=== PATIENT | male | born 1960 | race Caucasian/White ===

== ENCOUNTER 2018-01-16 19:56 | Observation (INO) ==
[2018-01-16 20:29] LABS: Basophils % 0.2 %; Eosinophils # 0.2 K/mcL (0.0-0.6); Eosinophils % 1.1 %; Hematocrit 48.2 % (37.5-50.1); Hemoglobin 15.8 g/dL (12.9-16.9); Immature Granulocytes % 0.6 % (0-4); Lymphocytes # 2.9 K/mcL (0.6-4.6); Lymphocytes % 22.1 %; Mean Corpuscular HGB Conc 32.8 g/dL (31.6-35.5); Mean Corpuscular Hemoglobin 30.9 pg (28.0-33.3); Mean Corpuscular Volume 94.3 fL (83.0-100.0); Mean Platelet Volume 10.8 fL (9.4-12.4); Monocytes # 0.9 K/mcL (0.0-1.3); Monocytes % 6.7 %; Neutrophils # 9.1 K/mcL (1.6-8.9); Platelet Count 209 K/mcL (140-400); Red Blood Count 5.11 M/mcL (4.19-5.50); Red Cell Distribution Width 13.5 % (11.5-14.5); Segmented Neutrophils % 69.3 %
[2018-01-16 20:36] LABS: Prothrombin Time 33.2 Seconds (9.4-12.1)
[2018-01-16 20:39] LABS: Activated Partial Thrombo Time 49.5 Seconds (26.0-36.0); Calcium 9.9 mg/dL (8.6-10.3); Carbon Dioxide 29 mEq/L (23-29); Chloride 97 mEq/L (98-107); Potassium 4.2 mEq/L (3.5-5.1); Sodium 134 mEq/L (136-145)
[2018-01-16 20:45] LABS: BUN/Creatinine Ratio 11 (6-26); Blood Urea Nitrogen 10 mg/dL (6-20); Glucose 371 mg/dL (70-105); Osmolality,Calculated 292 (280-300); eGFR For African Americans > 60 (> 60); eGFR For Non-African Americans > 60 (> 60)
--- NOTE | 2018-01-16 22:07 | Emergency Department Note ---
Disposition Clinical Impression: Transient cerebral ischemia Qualifiers: Transient cerebral ischemia type: unspecified Qualified Code(s): G45.9 - Transient cerebral ischemic attack, unspecified Disposition: Admitted As Inpatient Condition: Good Reasons to Return/Additional Instructions: patient admitted to hospital. Referrals: Marla eVrde CNP [Primary Care Provider] - Forms: ED Satisfaction Letter Time of Disposition: 00:10 Neuro HPI - General Chief Complaint: ED Neuro Symptoms/Deficit Stated Complaint: high bp slurred speech numbness in neck and arm Time Seen by Provider: 01/16/18 20:14 Source: patient Mode of arrival: ambulatory Limitations: no limitations Nursing Notes Reviewed: Yes Vital Signs Reviewed: Yes - History of Present Illness HPI Narrative: 57-year-old male presents to emergency department with a complaint of high blood pressure and right arm and neck numbness and tingling. Patient states that his symptoms have resolved upon presentation to emergency room however was present at bedside, insisted that he come in. She also some slurring of speech at that time. She did notice the manual blood pressure cuff that his blood pressure was 220/120. He is denying any symptoms of chest pain, shortness of breath, fevers, chills, recent illness. 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 He does take a daily aspirin at home. Onset of Symptoms Date: 01/16/18 Timing confirmed by: spouse Location: speech, right arm History of same: No Quality: weakness, numbness, tingling Symptoms Improving: Yes Improves with: none Worsens with: none Context: sudden onset On Anticoagulants: Yes Associated symptoms: Reports: denies other symptoms Treatments Prior to Arrival: none - Related Data Home Medications: Home Medications Medication Instructions Recorded Confirmed Albuterol Sulfate [Albuterol 2 puff IH Q4H PRN 11/06/15 01/16/18 Inhaler] Alprazolam XR [Xanax Xr] 1 mg PO HS 11/06/15 01/16/18 Alprazolam XR [Xanax Xr] 2 mg PO QAM 11/06/15 01/16/18 Aspirin [Adult Low Dose Aspirin EC] 81 mg PO DAILY 11/06/15 01/16/18 Budesonide/Formoterol 160/4.5 2 puff IH BIDR 11/06/15 01/16/18 [Symbicort] Colestipol HCl [Colestid] 1 gm PO BID 11/06/15 01/16/18 Cyanocobalamin (Vitamin B-12) 1,000 mcg PO DAILY 11/06/15 01/16/18 [Vitamin B12] Donepezil [Aricept] 10 mg PO HS 11/06/15 01/16/18 Insulin Glargine [Lantus] 95 unit SQ BID 11/06/15 01/16/18 Insulin LISPRO [HumaLOG] 0 units SQ TIDWM 11/06/15 01/16/18 Ipratropium/Albuterol Neb [Duoneb] 3 ml IH Q6HR PRN 11/06/15 01/16/18 Lansoprazole [Prevacid] 30 mg PO DAILY 11/06/15 01/16/18 Linagliptin [Tradjenta] 5 mg PO DAILY 11/06/15 01/16/18 Lisinopril [Zestril] 5 mg PO BID 11/06/15 01/16/18 Albuterol Neb [Proventil Neb] 2.5 mg IH TID 01/16/18 01/16/18 Ammonium Lactate [Kellen-Hydrolac] 1 appl TP BID 01/16/18 01/16/18 Calcium Polycarbophil [Fibercon] 625 mg PO QID PRN 01/16/18 01/16/18 Carvedilol [Coreg] 6.25 mg PO BIDWM 01/16/18 01/16/18 Dulaglutide [Trulicity] 0.75 mg SQ TU 01/16/18 01/16/18 Fluticasone Propionate Nasal 50 mcg NS DAILY 01/16/18 01/16/18 [Flonase] Folic Acid 1 mg PO DAILY 01/16/18 01/16/18 Furosemide [Lasix] 120 mg PO BID 01/16/18 01/16/18 Gabapentin [Neurontin] 300 mg PO TID 01/16/18 01/16/18 HYDROcodone/Acet 5/325 mg [[place] 1 tab PO Q6H PRN 01/16/18 01/16/18 5-325 mg] Isosorbide MONOnitrate (24 HR) 30 mg PO DAILY 01/16/18 01/16/18 [Imdur] Meloxicam [Mobic] 7.5 mg PO DAILY 01/16/18 01/16/18 Memantine HCl 10 mg PO HS 01/16/18 01/16/18 Metformin HCl [Glucophage] 1,000 mg PO BID 01/16/18 01/16/18 Nitroglycerin [Nitrostat] 0.4 mg SL Q5M PRN 01/16/18 01/16/18 OLANZapine [Zyprexa] 15 mg PO HS 01/16/18 01/16/18 Potassium Chloride [K-Tab ER] 20 meq PO BID 01/16/18 01/16/18 Simvastatin [Zocor] 40 mg PO HS 01/16/18 01/16/18 Tiotropium [place] [Spiriva 2 puff IH DAILY 01/16/18 01/16/18 Respimat] Warfarin [Coumadin] 10 mg PO 1800 01/16/18 01/16/18 lamoTRIgine [Lamictal] 50 mg PO HS 01/16/18 01/16/18 Previous Rx's Medication Instructions Recorded DiphenhydraMINE [Benadryl] 25 mg PO Q8HR PRN #30 capsule 11/07/15 Allergies/Adverse Reactions: Allergies Allergy/AdvReac Type Severity Reaction Status Date / Time No Known Allergies Allergy Verified 10/15/15 18:10 All systems ED: reviewed and negative except as stated. Review of Systems: As Per HPI Past Medical History - Past Medical History Medical history: Reports: CHF, COPD, DVT, dementia, diabetes, hyperlipidemia, hypertension, other Surgical history: Reports: cholecystectomy Psychiatric history: Reports: bipolar, depression - Social History Smoking Status: Current every day smoker Smokeless Tobacco Status: No Alcohol use: Reports: none Drug use: Reports: none Physical Exam - General Limitations: no limitations General appearance: alert, in no apparent distress, obese - Head Head exam: atraumatic, normocephalic, normal inspection - Chest Chest inspection: Present: normal inspection, symmetric chest wall rise - Respiratory Respiratory exam: Present: normal lung sounds bilaterally - Cardiovascular Cardiovascular exam: Present: regular rate, normal rhythm, tachycardia, normal heart sounds - Extremities Exam Extremities exam: Present: normal inspection, full ROM. Absent: tenderness, pedal edema - Neurological Exam Neurological exam: Present: alert, oriented X3, CN II-XII intact, normal gait. Absent: motor sensory deficit - Expanded Neurological Exam Speech: Present: fluid speech Cranial nerves: EOM function (II, III, IV, ): Normal, facial sensation (V): Normal, facial palsy (VII): Normal, spinal accessory function (XI): Normal, tongue deviation (XII): Normal Cerebellar function: finger to nose: Normal Motor strength - LUE: 5/5 Motor strength - RUE: 5/5 Motor strength - LLE: 5/5 Motor strength - RLE: 5/5 Coma Scale Motor Response: Obeys Commands Coma Scale Verbal Response: Oriented - Psychiatric Psychiatric exam: Present: normal affect, normal mood - Skin Skin exam: Present: warm, dry, intact, normal color Course Course Narrative: 57-year-old male presents tomorrow and probably with a complaint of weakness, numbness, tingling of his right upper extremity and slurring of speech. His symptoms have currently resolved. We will begin stroke workup with CT head, chest x-ray, BMP, CBC, troponin, EKG. Vital Signs Temperature 97.8 F 01/16/18 20:00 Pulse Rate 122 01/16/18 20:00 Respiratory Rate 20 01/16/18 20:00 Blood Pressure 135/95 01/16/18 20:00 O2 Sat by Pulse Oximetry 95 01/16/18 20:00 Temperature 98.6 F 01/16/18 23:32 Pulse Rate 106 01/16/18 23:32 Respiratory Rate 16 01/16/18 23:32 Blood Pressure 126/89 01/16/18 23:32 O2 Sat by Pulse Oximetry 94 01/16/18 23:32 Oxygen Delivery Oxygen Delivery Room Air Neuro Symptoms/Deficit - [facility] Narrative Medical decision making narrative: 57-year-old male presenting with weakness, numbness, slurred speech. CT head was negative for acute pathology. Chest x-ray unremarkable. Blood pressure has been within normal limits since presentation to emergency room. INR is therapeutic at 3.0. We feel that this time he would benefit from a workup for TIA. Hospitalist contacted, who agrees with admission for TIA workup. - Lab Data Result diagrams: 01/16/18 20:15 01/16/18 20:15 Lab Results 01/16/18 01/16/18 01/16/18 Range/Units 20:15 20:15 20:15 WBC 13.1 H (4.3-11.1) K/mcL RBC 5.11 (4.19-5.50) M/mcL Hgb 15.8 (12.9-16.9) g/dL Hct 48.2 (37.5-50.1) % MCV 94.3 (83.0-100.0) fL MCH 30.9 (28.0-33.3) pg MCHC 32.8 (31.6-35.5) g/dL RDW 13.5 (11.5-14.5) % Plt Count 209 (140-400) K/mcL MPV 10.8 (9.4-12.4) fL Immature Gran % 0.6 (0-4) % Seg Neutrophils % 69.3 % Lymphocytes % 22.1 % Monocytes % 6.7 % Eosinophils % 1.1 % Basophils % 0.2 % Neutrophils # 9.1 H (1.6-8.9) K/mcL Lymphocytes # 2.9 (0.6-4.6) K/mcL Monocytes # 0.9 (0.0-1.3) K/mcL Eosinophils # 0.2 (0.0-0.6) K/mcL Basophils # 0.0 (0.0-0.2) K/mcL PT (9.4-12.1) Seconds INR APTT (26.0-36.0) Seconds Sodium 134 L (136-145) mEq/L Potassium 4.2 (3.5-5.1) mEq/L Chloride 97 L (98-107) mEq/L Carbon Dioxide 29 (23-29) mEq/L BUN 10 (6-20) mg/dL Creatinine 0.92 (0.70-1.30) mg/dL Est GFR ( Amer) > 60 (> 60) Est GFR (Non-Af Amer) > 60 (> 60) BUN/Creatinine Ratio 11 (6-26) Glucose 371 H (70-105) mg/dL Calculated Osmolality 292 (280-300) Calcium 9.9 (8.6-10.3) mg/dL Troponin I < 0.03 (< 0.04) ng/mL 01/16/18 Range/Units 20:15 WBC (4.3-11.1) K/mcL RBC (4.19-5.50) M/mcL Hgb (12.9-16.9) g/dL Hct (37.5-50.1) % MCV (83.0-100.0) fL MCH (28.0-33.3) pg MCHC (31.6-35.5) g/dL RDW (11.5-14.5) % Plt Count (140-400) K/mcL MPV (9.4-12.4) fL Immature Gran % (0-4) % Seg Neutrophils % % Lymphocytes % % Monocytes % % Eosinophils % % Basophils % % Neutrophils # (1.6-8.9) K/mcL Lymphocytes # (0.6-4.6) K/mcL Monocytes # (0.0-1.3) K/mcL Eosinophils # (0.0-0.6) K/mcL Basophils # (0.0-0.2) K/mcL PT 33.2 H (9.4-12.1) Seconds INR 3.0 APTT 49.5 H (26.0-36.0) Seconds Sodium (136-145) mEq/L Potassium (3.5-5.1) mEq/L Chloride (98-107) mEq/L Carbon Dioxide (23-29) mEq/L BUN (6-20) mg/dL Creatinine (0.70-1.30) mg/dL Est GFR ( Amer) (> 60) Est GFR (Non-Af Amer) (> 60) BUN/Creatinine Ratio (6-26) Glucose (70-105) mg/dL Calculated Osmolality (280-300) Calcium (8.6-10.3) mg/dL Troponin I (< 0.04) ng/mL - EKG Data EKG shows normal: sinus rhythm Rate: tachycardia Rhythm: NSR [place]/QRS: normal When compared to previous EKG there are: no significant changes Interpretation: no acute changes, normal EKG NIH Stroke Scale - Level of Consciousness LOC: Alert - LOC Questions LOC Questions: Answers both correctly - LOC Commands LOC Commands: Performs both correctly - Best Gaze Best Gaze: Normal - Visual Visual: No visual loss - Facial Palsy Facial Palsy: Normal - Motor Arms Motor Arm-Left: No drift for 10 seconds Motor Arm-Right: No drift for 10 seconds - Motor Legs Motor Leg-Left: No drift for 5 seconds Motor Leg-Right: No drift for 5 seconds - Limb Ataxia Limb Ataxia: Normal, No Ataxia - Sensory Sensory: Normal - Best Language Best Language: No aphasia - Dysarthria Dysarthria: Normal - Extinction and Inattention Extinction and Inattention: Normal - NIHSS Total Score NIHSS Total Score: 0 TPA Checklist - LKW: 3-4.5 hrs Add. Warnings/Precautions Patient/family understanding: The patient/family members have been counseled and understood the risk, benefit , and alternatives of treatment.
[2018-01-16] MEDS ORDERED: Aspirin 325 MG TABLET PO ONE (22:08)
--- NOTE | 2018-01-16 22:10 | Emergency Department Note ---
START Narrative - START START: I examined this patient and my medical decision-making was reviewed with the Resident Physician. I agree with the documented findings, disposition and treatment plan as described except to the extent set forth below. 57-year-old presents to the ER for concerns for slurred speech and hypertension. Family states they took his blood pressure home and it was 220/ 120. He was having slurred speech associated with a severe right-sided headache and some questionable right arm numbness. Upon arrival, patient has no neurological deficits. Cranial nerves are intact. No focal motor or sensory deficits. CT of the head was negative. His blood pressure is now down to normal. I feel he needs to be admitted for possible TIA evaluation based on his history and presentation. No signs of end organ damage.
[2018-01-16] MEDS ORDERED: Aspirin 81 MG TAB.CHEW ONE (22:32)
--- NOTE | 2018-01-17 02:34 | Internal Med History&Physical ---
Date of Encounter: 01/17/18 Time of Encounter: 04:25 Assessment and Plan (1) Stroke Current visit: Yes Status: Acute History of prior stroke Slurred speech is ongoing No other focal neuro changes MRI Brain, Echo and Bilat. Carotid Dopplers ordered Lipid panel ordered On Statin, aspirin and Warfarin Bedside swallow study ordered. Qualifiers: CVA mechanism: unspecified Qualified Code(s): I63.9 - Cerebral infarction, unspecified (2) History of pulmonary embolism Current visit: No Status: Chronic RPh to dose Warfarin (3) COPD (chronic obstructive pulmonary disease) Current visit: No Status: Chronic Continue home medications No acute exacerbation Qualifiers: COPD type: unspecified COPD Qualified Code(s): J44.9 - Chronic obstructive pulmonary disease, unspecified (4) Leukocytosis Current visit: No Status: Acute No obvious source of infections Repeat labs No antibiotics at this time Qualifiers: Leukocytosis type: unspecified Qualified Code(s): D72.829 - Elevated white blood cell count, unspecified (5) Tobacco abuse Current visit: No Status: Chronic 21 mg nicotine patch Rx'd Internal Medicine - H&P: HPI Chief complaint: slurred speech. Admitted From: Emergency Dept Plans for Post Hospital Care: Home History of present illness: Mr. Lambert is a 57 year old male 57-year-old male patient with history of prior stroke who presnts in ER c/o right neck and head pain which began at 12:30 pm and was associated with a right sided [place] and then slurred speech. His BP was elevated at this time and he reports high blood pressure as well as right arm and neck numbness and tingling. All of his symptoms except the slurred speech have resolved. His CT- Head can did not show infarct or acute pathology. She did notice the manual blood pressure cuff that his blood pressure was 220/120. He is denying any symptoms of chest pain, shortness of breath, fevers, chills, recent illness. 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 He does take a daily aspirin at home. Past Med Surg Social Fam HX - Past Medical History Medical history: CHF, COPD, DVT, dementia, diabetes, hyperlipidemia, hypertension, other Psychiatric history: bipolar, depression - Past Surgical History Surgical History: cholecystectomy - Social History Smoking Status: Current every day smoker Packs per day: 2.5 Smokeless Tobacco Status: No Alcohol use: none Drug use: none - Family History Mother Hx Family Cancer: Yes Father Hx Family Cardiac Disorders: Yes Internal Medicine - H&P: Meds Albuterol Sulfate [Albuterol Inhaler] 2 puff IH Q4H PRN 11/06/15 [History] Alprazolam XR [Xanax Xr] 1 mg PO HS 11/06/15 [History] Alprazolam XR [Xanax Xr] 2 mg PO QAM 11/06/15 [History] Aspirin [Adult Low Dose Aspirin EC] 81 mg PO DAILY 11/06/15 [History] Budesonide/Formoterol 160/4.5 [Symbicort] 2 puff IH BIDR 11/06/15 [History] Colestipol HCl [Colestid] 1 gm PO BID 11/06/15 [History] Cyanocobalamin (Vitamin B-12) [Vitamin B12] 1,000 mcg PO DAILY 11/06/15 [History ] Donepezil [Aricept] 10 mg PO HS 11/06/15 [History] Insulin Glargine [Lantus] 95 unit SQ BID 11/06/15 [History] Insulin LISPRO [HumaLOG] 0 units SQ TIDWM 11/06/15 [History] Ipratropium/Albuterol Neb [Duoneb] 3 ml IH Q6HR PRN 11/06/15 [History] Lansoprazole [Prevacid] 30 mg PO DAILY 11/06/15 [History] Linagliptin [Tradjenta] 5 mg PO DAILY 11/06/15 [History] Lisinopril [Zestril] 5 mg PO BID 11/06/15 [History] DiphenhydraMINE [Benadryl] 25 mg PO Q8HR PRN #30 capsule 11/07/15 [Rx] Albuterol Neb [Proventil Neb] 2.5 mg IH TID 01/16/18 [History] Ammonium Lactate [Kellen-Hydrolac] 1 appl TP BID 01/16/18 [History] Calcium Polycarbophil [Fibercon] 625 mg PO QID PRN 01/16/18 [History] Carvedilol [Coreg] 6.25 mg PO BIDWM 01/16/18 [History] Dulaglutide [Trulicity] 0.75 mg SQ TU 01/16/18 [History] Fluticasone Propionate Nasal [Flonase] 50 mcg NS DAILY 01/16/18 [History] Folic Acid 1 mg PO DAILY 01/16/18 [History] Furosemide [Lasix] 120 mg PO BID 01/16/18 [History] Gabapentin [Neurontin] 300 mg PO TID 01/16/18 [History] HYDROcodone/Acet 5/325 mg [[place] 5-325 mg] 1 tab PO Q6H PRN 01/16/18 [History] Isosorbide MONOnitrate (24 HR) [Imdur] 30 mg PO DAILY 01/16/18 [History] Meloxicam [Mobic] 7.5 mg PO DAILY 01/16/18 [History] Memantine HCl 10 mg PO HS 01/16/18 [History] Metformin HCl [Glucophage] 1,000 mg PO BID 01/16/18 [History] Nitroglycerin [Nitrostat] 0.4 mg SL Q5M PRN 01/16/18 [History] OLANZapine [Zyprexa] 15 mg PO HS 01/16/18 [History] Potassium Chloride [K-Tab ER] 20 meq PO BID 01/16/18 [History] Simvastatin [Zocor] 40 mg PO HS 01/16/18 [History] Tiotropium [place] [Spiriva Respimat] 2 puff IH DAILY 01/16/18 [History] Warfarin [Coumadin] 10 mg PO 1800 01/16/18 [History] lamoTRIgine [Lamictal] 50 mg PO HS 01/16/18 [History] 3 Allergy/AdvReac Type Severity Reaction Status Date / Time No Known Allergies Allergy Verified 10/15/15 18:10 All Systems PM: A 10-system review of systems was performed and is negative for pertinent findings except as documented above in the HPI. - Constitutional Constitutional: lethargy, weakness, no anorexia, no excessive sweating, no falls , no night sweats - EENT Eyes: no blurry vision, no diplopia, no discharge, no pain, no tunnel vision Nose, mouth and throat: no dysphagia, no epistaxis, no nasal congestion, no nasal obstruction, no odynophagia, no post-nasal drip, no sore throat, no tongue swelling - Cardiovascular Cardiovascular ROS IM: no paroxysmal nocturnal dyspnea - Respiratory Respiratory: no cough, no dyspnea, no hemoptysis, no wheezing, no snoring, no stridor - Gastrointestinal Gastrointestinal: no abdominal pain, no change in stool character, no coffee ground emesis, no constipation, no dyspepsia, no dysphagia, no fecal incontinence, no heartburn, no hematemesis, no hematochezia - Genitourinary Genitourinary ROS male: no dysuria, no hematuria, no nocturia - Musculoskeletal Musculoskeletal ROS IM: muscle weakness, neck pain, numbness, tingling - Integumentary Integumentary IM: no erythema, no rash, no jaundice - Neurological Neurological ROS: abnormal speech, weakness, no abnormal hearing - Endocrine Endocrine IM: no cold intolerance, no heat intolerance - Allergic/Immunologic Allergic/Immunologic: no tongue swelling, no uticaria, no wheezing - Constitutional Vitals: Temp Pulse Resp BP Pulse Ox 97.8 F 106 19 131/91 93 01/17/18 00:58 01/17/18 00:58 01/17/18 00:58 01/17/18 00:58 01/17/18 00:58 - Head Head exam: Present: atraumatic, normocephalic - Eye Eye exam: Present: EOMI, PERRL, conjuntiva pink, sclera anicteric Pupils: Present: unequal. Absent: PERRL - Neck Neck exam general surgery: Present: supple, trachea midline. Absent: lymphadenopathy - Respiratory Respiratory exam: Present: CTAB. Absent: accessory muscle use, rales, rhonchi, wheezes - Cardiovascular Cardiovascular exam: Present: RRR, +S1, +S2. Absent: diastolic murmur, gallop, rubs, systolic murmur - GI/Abdominal GI/Abdominal exam: Present: normal bowel sounds, soft, no peritoneal signs. Absent: distended, tenderness - Extremities Exam Extremities exam: Present: warm, radial pulses palpable and symmetrical. Absent : calf tenderness, cyanotic, pedal edema - Neurological Exam Neurological exam: Present: oriented X3, speech deficit. Absent: CN II-XII intact, no focal deficits, pronater drift, facial droop - Skin Skin exam: Present: dry, intact. Absent: rash Internal Med - H&P Results - Labs CBC & Chem 7: 01/16/18 20:15 01/16/18 20:15
[2018-01-17] MEDS ORDERED: Ipratropium/Albuterol Neb 3 ML IH PRN (04:03)
[2018-01-17] MEDS ORDERED: Nitroglycerin 0.4 MG TAB.SUBL SL PRN (04:03)
[2018-01-17] MEDS ORDERED: Dextrose Gel 15 GM/37.5 ML TUBE PO PRN ×2 (04:14)
[2018-01-17] MEDS ORDERED: D5% in Water 1,000 ML IVC PRN (04:14)
[2018-01-17] MEDS ORDERED: *HR* Dextrose 50 % in Water (Syg) 50 ML SYRINGE IVP PRN (04:14)
[2018-01-17] MEDS: Insulin LISPRO 300 UNITS/3 ML VIAL SQ SCH ×3 (05:50→18:07)
[2018-01-17 05:55] LABS: INR 2.6; Prothrombin Time 28.5 Seconds (9.4-12.1)
[2018-01-17] MEDS ORDERED: ALPRAZOLAM 2 MG PO SCH (09:00)
[2018-01-17] MEDS ORDERED: Aspirin 81 MG TAB.CHEW PO SCH (09:00)
[2018-01-17] MEDS: *HR* Metformin 500 MG TABLET PO SCH ×2 (09:45→18:05)
[2018-01-17] MEDS: Furosemide 40 MG TABLET PO SCH ×2 (09:45→18:06)
[2018-01-17] MEDS: Isosorbide MONOnitrate (24 HR) 30 MG TAB.ER.24H PO SCH (09:45)
[2018-01-17] MEDS: Fluticasone Propionate Nasal 50 MCG/SPRAY BOTTLE NS SCH (09:45)
[2018-01-17] MEDS: Aspirin Enteric Coated 81 MG Tablet PO SCH (09:45)
[2018-01-17] MEDS: Ammonium Lactate 30 APPL/225 GM BOTTLE TP SCH ×2 (09:45→21:19)
[2018-01-17] MEDS: Folic Acid 1 MG TABLET PO SCH (09:45)
[2018-01-17] MEDS: Cyanocobalamin (B-12) 1,000 MCG TABLET PO SCH (09:46)
[2018-01-17] MEDS: ALPRAZolam 1 MG TABLET PO SCH ×3 (09:46→21:17)
[2018-01-17] MEDS: Gabapentin 300 MG CAPSULE PO SCH ×3 (09:46→21:15)
--- NOTE | 2018-01-17 09:49 | Neurology - Consult Note ---
<Ruslan Araujo - Last Filed: 01/17/18 11:54> Date of Encounter: 01/17/18 Time of Encounter: 09:46 Assessment and Plan (1) Transient cerebral ischemia Current Visit: Yes Status: Acute Mr. Lambert is a 57-year-old male with significant risk factors including Uncontrolled insulin-dependent diabetes, hypertension, hyperlipidemia, significant tobacco abuse, CAD, subcortical dementia presented with right-sided weakness and slurred speech which resolved within 24 hours to his baseline. - Head CT demonstrates no acute intracranial abnormalities. - Clinical examination does not correlate with any acute hemorrhagic/ischemic events - Laboratory results demonstrate hyperglycemia, therapeutic INR Plan: - MRI of the head pending - Doppler carotids bilateral pendingl - Continue to monitor for clinical changes. Qualifiers: Transient cerebral ischemia type: unspecified Qualified Code(s): G45.9 - Transient cerebral ischemic attack, unspecified History of Present Illness Chief complaint: Weakness on the right side HPI: Mr. Lambert is a 57 year old male with multiple medical problems including spontaneous DVT and PE several years ago on which he has been on chronic Coumadin, COPD, sarcoidosis, right-sided heart failure, vascular dementia, insulin-dependent diabetes mellitus, hypertension, hyperlipidemia, and Parkinson 's disease. He was brought to the emergency department by his who noticed that he had slurred speech, right-sided weakness and difficulty following commands around noon yesterday. She brought him to the emergency department around 8 PM as he refuses to go any earlier. Mr. Lambert denies any preceding factors denies any palpitations, altered mental status, lightheadedness dizziness, nausea vomiting diarrhea constipation, abdominal pains or swelling outside of his normal in his lower extremity. When asked about any prior strokes he says he has subcortical dementia which she had seen neurology in the past but has never had a significant stroke resulting in limb weakness. He does admit to daily smoking roughly 3 packs per day for roughly 30+ years. He does not tend on quitting. He admits to being an uncontrolled diabetic with glucoses are averaging between 350 and 400 and does not follow any strict diet. His says he is currently at his normal baseline improved from yesterday. His speech is at baseline, his upper extremity and lower extremity movements are the same as they were before. Mr. lambert says he is back to normal. He is cooperative throughout the physical examination. Mrs. Melendez states that at baseline he has some gait ataxia and runs into objects. Past Med Surg Social Fam HX - Past Medical History Medical history: CHF, COPD, DVT, dementia, diabetes, hyperlipidemia, hypertension, other Psychiatric history: bipolar, depression - Past Surgical History Surgical History: cholecystectomy - Social History Smoking Status: Current every day smoker Packs per day: 2.5 Smokeless Tobacco Status: No Alcohol use: none Drug use: none - Family History Mother Hx Family Cancer: Yes Father Hx Family Cardiac Disorders: Yes Medications and Allergies Albuterol Sulfate [Albuterol Inhaler] 2 puff IH Q4H PRN 11/06/15 [History] Alprazolam XR [Xanax Xr] 1 mg PO HS 11/06/15 [History] Alprazolam XR [Xanax Xr] 2 mg PO QAM 11/06/15 [History] Aspirin [Adult Low Dose Aspirin EC] 81 mg PO DAILY 11/06/15 [History] Budesonide/Formoterol 160/4.5 [Symbicort] 2 puff IH BIDR 11/06/15 [History] Colestipol HCl [Colestid] 1 gm PO BID 11/06/15 [History] Cyanocobalamin (Vitamin B-12) [Vitamin B12] 1,000 mcg PO DAILY 11/06/15 [History ] Donepezil [Aricept] 10 mg PO HS 11/06/15 [History] Insulin Glargine [Lantus] 95 unit SQ BID 11/06/15 [History] Insulin LISPRO [HumaLOG] 0 units SQ TIDWM 11/06/15 [History] Ipratropium/Albuterol Neb [Duoneb] 3 ml IH Q6HR PRN 11/06/15 [History] Lansoprazole [Prevacid] 30 mg PO DAILY 11/06/15 [History] Linagliptin [Tradjenta] 5 mg PO DAILY 11/06/15 [History] Lisinopril [Zestril] 5 mg PO BID 11/06/15 [History] DiphenhydraMINE [Benadryl] 25 mg PO Q8HR PRN #30 capsule 11/07/15 [Rx] Albuterol Neb [Proventil Neb] 2.5 mg IH TID 01/16/18 [History] Ammonium Lactate [Kellen-Hydrolac] 1 appl TP BID 01/16/18 [History] Calcium Polycarbophil [Fibercon] 625 mg PO QID PRN 01/16/18 [History] Carvedilol [Coreg] 6.25 mg PO BIDWM 01/16/18 [History] Dulaglutide [Trulicity] 0.75 mg SQ TU 01/16/18 [History] Fluticasone Propionate Nasal [Flonase] 50 mcg NS DAILY 01/16/18 [History] Folic Acid 1 mg PO DAILY 01/16/18 [History] Furosemide [Lasix] 120 mg PO BID 01/16/18 [History] Gabapentin [Neurontin] 300 mg PO TID 01/16/18 [History] HYDROcodone/Acet 5/325 mg [[place] 5-325 mg] 1 tab PO Q6H PRN 01/16/18 [History] Isosorbide MONOnitrate (24 HR) [Imdur] 30 mg PO DAILY 01/16/18 [History] Meloxicam [Mobic] 7.5 mg PO DAILY 01/16/18 [History] Memantine HCl 10 mg PO HS 01/16/18 [History] Metformin HCl [Glucophage] 1,000 mg PO BID 01/16/18 [History] Nitroglycerin [Nitrostat] 0.4 mg SL Q5M PRN 01/16/18 [History] OLANZapine [Zyprexa] 15 mg PO HS 01/16/18 [History] Potassium Chloride [K-Tab ER] 20 meq PO BID 01/16/18 [History] Simvastatin [Zocor] 40 mg PO HS 01/16/18 [History] Tiotropium Candor [Spiriva Respimat] 2 puff IH DAILY 01/16/18 [History] Warfarin [Coumadin] 10 mg PO 1800 01/16/18 [History] lamoTRIgine [Lamictal] 50 mg PO HS 01/16/18 [History] 3 Allergy/AdvReac Type Severity Reaction Status Date / Time No Known Allergies Allergy Verified 10/15/15 18:10 All Systems: The remainder of the systems were reviewed and are negative - Constitutional Constitutional ROS IM: no chills, no daytime sleepiness, no excessive sweating, no frequent falls, no headache(s), no lethargy, no weakness - Nose, Mouth, Throat Nose, mouth and throat: no abnormal hearing (Baseline hearing deficit ), no disequilibrium, no dizziness, no headache(s) - Cardiovascular Cardiovascular ROS IM: edema, no dyspnea on exertion, no irregular heart rhythm , no leg ulcers, no lightheadedness, no rapid heart rate, no slow heart rate - Respiratory Respiratory IM: no dyspnea - Gastrointestinal Gastrointestinal: no nausea, no vomiting - Genitourinary Genitourinary ROS: no urinary frequency, no urinary incontinence, no urinary urgency - Musculoskeletal Musculoskeletal ROS IM: abnormal gait, no muscle cramps, no muscle weakness, no myalgias, no tingling - Neurological Neurological ROS: abnormal gait, no abnormal hearing, no abnormal movements, no abnormal speech, no confusion, no disequilibrium, no headache(s), no lack of coordination, no loss of vision, no tingling, no tremor(s), no weakness - Psychiatric Psychiatric general PM: other (Dementia ), no confusion Physical Examination - Vital Signs Vital Signs: Initial Vital Signs Temp Pulse Resp BP Pulse Ox 97.8 F 122 20 135/95 95 01/16/18 20:00 01/16/18 20:00 01/16/18 20:00 01/16/18 20:00 01/16/18 20:00 - Constitutional General appearance: comfortable - Neurologic Sensorimotor examination: intact Detailed motor examination: grossly full strength in all extremities Motor examination - right side: 5/5: deltoids, biceps, triceps, wrist flexion, wrist extension, copy writer, hip flexors, tibialis Anterior, quadriceps, toe extension (EHL), plantarflexion Motor examination - left side: 5/5: deltoids, biceps, triceps, wrist flexion, wrist extension, hip flexors, copy writer, quadriceps, tibialis Anterior, toe extension (EHL), plantarflexion Detailed sensory examination: intact Reflexes: Biceps: 1+, Triceps: 1+, Brachioradialis: 1+, Patella: 1+, Achilles: 1 + Mental Status Examination: awake, alert, oriented to person, oriented to place, oriented to time, follows commands appropriately, answers questions appropriately, opens eyes to voice, makes eye contact Cranial nerve examination: PERRL, EOMI, visual stephen intact, sensory to face intact, mastication intact, no facial asymmetry is present, no dysarthria, hearing is intact symmetrically, soft palate elevates bilaterally upon phonation , flexes SCM and trapezius muscles symmetrically with full power (Baseline has slow word finding speech.), tongue protrudes midline Results - Laboratory Findings CBC and BMP: 01/16/18 20:15 01/16/18 20:15 Abnormal lab findings: Abnormal lab results WBC 13.1 K/mcL (4.3-11.1) H 01/16/18 20:15 Neutrophils # 9.1 K/mcL (1.6-8.9) H 01/16/18 20:15 PT 28.5 Seconds (9.4-12.1) H 01/17/18 05:26 APTT 49.5 Seconds (26.0-36.0) H 01/16/18 20:15 Sodium 134 mEq/L (136-145) L 01/16/18 20:15 Chloride 97 mEq/L (98-107) L 01/16/18 20:15 Glucose 371 mg/dL (70-105) H 01/16/18 20:15 Consult Discharge Plan - Plan Referrals: Marla Verde [facility] OPERATOR [Primary Care Provider] - <Jean-Claude Mejia - Last Filed: 01/17/18 17:52> Date of Encounter: 01/17/18 Time of Encounter: 17:48 Assessment and Plan (1) Transient cerebral ischemia Current Visit: Yes Status: Acute As above. I had a very himanshu discussion with Mr. Lambert regarding his history of excessive tobacco along with his risk factors of diabetes hyperlipidemia and hypertension. However we should maintain his antiplatelet therapy along with his anticoagulation therapy. Further recommendations will be made pending the outcome of the echocardiogram and carotid Doppler studies. Qualifiers: Transient cerebral ischemia type: unspecified Qualified Code(s): G45.9 - Transient cerebral ischemic attack, unspecified History of Present Illness HPI: The chart was reviewed, case was discussed with Dr. Araujo, patient was examined independently. He is known to me due to a prior history of drug- induced Parkinson's and dementia. He is admitted today to symptoms of slurred speech and right-sided weakness and associated headache. I agree with Dr. Araujo's history as stated above. I am very concerned about his 3 pack per day history of smoking along with his other risk factors. MRI scan of the brain has been completed and does not reveal evidence of an acute infarct. Carotid Doppler and echocardiogram pending. He is already on anticoagulation for history of PE/DVT. He was given aspirin acutely in the ED. All Systems: The remainder of the systems were reviewed and are negative Review of Systems: 10 point review of systems is consistent with a history of present illness and is otherwise negative. Physical Examination - Vital Signs Vital Signs: Initial Vital Signs Temp Pulse Resp BP Pulse Ox 97.8 F 122 20 135/95 95 01/16/18 20:00 01/16/18 20:00 01/16/18 20:00 01/16/18 20:00 01/16/18 20:00 Results - Laboratory Findings CBC and BMP: 01/16/18 20:15 01/16/18 20:15 Abnormal lab findings: Abnormal lab results WBC 13.1 K/mcL (4.3-11.1) H 01/16/18 20:15 Neutrophils # 9.1 K/mcL (1.6-8.9) H 01/16/18 20:15 PT 28.5 Seconds (9.4-12.1) H 01/17/18 05:26 APTT 49.5 Seconds (26.0-36.0) H 01/16/18 20:15 Sodium 134 mEq/L (136-145) L 01/16/18 20:15 Chloride 97 mEq/L (98-107) L 01/16/18 20:15 Glucose 371 mg/dL (70-105) H 01/16/18 20:15
[2018-01-17] MEDS: Budesonide/Formoterol 160/4.5 MDI IH SCH ×2 (10:25→19:45)
[2018-01-17] MEDS: Tiotropium 18 MCG inhalation IH SCH (10:26)
[2018-01-17] MEDS: Albuterol 2.5 MG/3 ML NEBULIZER IH SCH ×2 (10:30→19:44)
[2018-01-17] MEDS: COLESTIPOL HCL 1 GM PO SCH ×2 (12:34→21:19)
--- NOTE | 2018-01-17 13:02 | Event Note ---
Date of Encounter: 01/17/18 Time of Encounter: 12:59 Patient's is at the bedside. During the exam the patient seems to be back to his baseline. The stated that this large pizza speech resolved overnight and that she believes he is back to his baseline. Neurology consulted , MRI of the brain, echocardiogram and carotid duplexes are pending. Is on a NicoDerm patch for his tobacco abuse. Coumadin for history of PE with pharmacy dosing. Speech evaluation and he is put on a soft textured diet with clear liquids. Diagnosis likely TIA.
--- NOTE | 2018-01-17 15:15 | Electrocardiograph Report ---
[address] [place], [place] [address] Test Date: 2018-01-16 Pat Name: Noé Lambert Department: 103 Room: 3B16 Gender: M Advanced Nursing Professor: : [id number] Requested By: Brian Quigley Order Number: [id number] Reading MD: Reina Flores Measurements Intervals [place] Rate: 118 P: 56 DE: 155 QRS: 50 QRSD: 99 T: 47 QT: 303 QTc: 373 Interpretive Statements SINUS TACHYCARDIA ABNORMAL RHYTHM ECG Electronically Signed On 01-17-2018 15:13:19 EST by Reina Flores
[2018-01-17] MEDS ORDERED: Warfarin perPT PO PRN (18:00)
[2018-01-17] MEDS ORDERED: lamoTRIgine 25 MG TABLET PO SCH (21:00)
[2018-01-17] MEDS ORDERED: OLANZapine 5 MG TAB.RAPDIS PO SCH (21:00)
[2018-01-17] MEDS ORDERED: ALPRAZOLAM 1 MG PO SCH (21:00)
[2018-01-18] MEDS: Insulin LISPRO 300 UNITS/3 ML VIAL SQ SCH ×3 (00:08→11:48)
[2018-01-18] MEDS: Albuterol 2.5 MG/3 ML NEBULIZER IH SCH ×2 (03:25→10:35)
[2018-01-18 04:38] LABS: INR 1.7
[2018-01-18 04:51] LABS: Chol/HDL Ratio 4.7 (0-4.9)
[2018-01-18] MEDS: Ammonium Lactate 30 APPL/225 GM BOTTLE TP SCH (08:20)
[2018-01-18] MEDS: Furosemide 40 MG TABLET PO SCH (08:20)
[2018-01-18] MEDS: *HR* Metformin 500 MG TABLET PO SCH (08:20)
[2018-01-18] MEDS: Folic Acid 1 MG TABLET PO SCH (08:22)
[2018-01-18] MEDS: Cyanocobalamin (B-12) 1,000 MCG TABLET PO SCH (08:22)
[2018-01-18] MEDS: ALPRAZolam 1 MG TABLET PO SCH (08:22)
[2018-01-18] MEDS: Gabapentin 300 MG CAPSULE PO SCH (08:22)
[2018-01-18] MEDS: Aspirin Enteric Coated 81 MG Tablet PO SCH (08:22)
[2018-01-18] MEDS: Isosorbide MONOnitrate (24 HR) 30 MG TAB.ER.24H PO SCH (08:22)
[2018-01-18] MEDS: Fluticasone Propionate Nasal 50 MCG/SPRAY BOTTLE NS SCH (08:23)
[2018-01-18] MEDS: COLESTIPOL HCL 1 GM PO SCH (08:23)
--- NOTE | 2018-01-18 09:12 | Neurology Progress Note ---
<VanRuslan Vaca - Last Filed: 01/18/18 15:19> Date of Encounter: 01/18/18 Time of Encounter: 09:11 Assessment and Plan (1) Transient cerebral ischemia Status: Acute Mr. Lambert is a 57-year-old male with significant risk factors including Uncontrolled insulin-dependent diabetes, hypertension, hyperlipidemia, significant tobacco abuse, CAD, subcortical dementia presented with right-sided weakness and slurred speech which resolved within 24 hours to his baseline. - Head CT demonstrates no acute intracranial abnormalities. - Clinical examination does not correlate with any acute hemorrhagic/ischemic events - Laboratory results demonstrate hyperglycemia, therapeutic INR 01/18: Mr. lambert is back to baseline, no acute changes overnight. MRI of the brain without any acute infarct, intracranial hemorrhage or significant mass effect. Carotid Dopplers without significant stenosis bilaterally. Echocardiogram without significant findings EF of 65%. Plan: - Continue aspirin for antiplatelet therapy. - Discussed tobacco cessation, appropriate glucose control and hypertensive management with Mr. lambert. He demonstrates understanding and risks to his health of noncompliance. Subjective Interval history: Mr. Lambert 57-year-old male seen in evaluate a patient bedside this morning. He is sitting up in his chair without any acute complaints. He denies any neurologic complaints or changes overnight and feels back to his normal self. He denies any lightheadedness, dizziness, blurry vision or double vision, headaches, neck pains, chest pain, shortness of breath, palpitations, abdominal pain nausea vomiting diarrhea constipation or extremity weakness numbness or tingling. Again we had a long discussion regarding smoking cessation, the risk of tobacco use, dietary improvements in review of his lipid panel. He understands the importance of glucose control and his risk factors for recurrent strokes in the future. Objective - Constitutional Vitals: Temp Pulse Resp BP Pulse Ox 98.3 F 98 14 103/71 93 01/18/18 07:44 01/18/18 07:44 01/18/18 07:44 01/18/18 07:44 01/18/18 07:44 General appearance: Present: cooperative, A&O X 3, no acute distress, answers questions appropriately - Head Head exam: Present: atraumatic, normocephalic - Eye Eye exam: Present: PERRL, conjuntiva pink, sclera anicteric Pupils: Present: PERRL - Extremities Exam Extremities exam: Present: warm, radial pulses palpable and symmetrical. Absent : calf tenderness, cyanotic, pedal edema - Neurological Exam Sensorimotor examination: Present: intact Motor Examination: Present: grossly full strength in all extremities, full strength in all major muscle groups Motor examination - right side: 5/5: deltoids, biceps, triceps, wrist flexion, wrist extension, tourist information officer, hip flexors, tibialis Anterior, quadriceps, toe extension (EHL), plantarflexion Motor examination - left side: 5/5: deltoids, biceps, triceps, wrist flexion, wrist extension, hip flexors, tourist information officer, quadriceps, tibialis Anterior, toe extension (EHL), plantarflexion Sensation intact: Present: intact Reflexes: Biceps: 2+, Triceps: 2+, Brachioradialis: 2+, Patella: 2+, Achilles: 2 + Mental Status Examination: Present: awake, alert, oriented to person, oriented to place, oriented to time, follows commands appropriately, answers questions appropriately, opens eyes to voice, makes eye contact Cranial nerve examination: Present: PERRL, EOMI, visual stephen intact, sensory to face intact, mastication intact, no facial asymmetry is present, no dysarthria, hearing is intact symmetrically, soft palate elevates bilaterally upon phonation, flexes SCM and trapezius muscles symmetrically with full power ( Baseline has slow word finding speech.), tongue protrudes midline Results - Laboratory Findings CBC and BMP: 01/16/18 20:15 01/16/18 20:15 Abnormal lab findings: Abnormal lab results WBC 13.1 K/mcL (4.3-11.1) H 01/16/18 20:15 Neutrophils # 9.1 K/mcL (1.6-8.9) H 01/16/18 20:15 PT 18.0 Seconds (9.4-12.1) H 01/18/18 03:13 APTT 49.5 Seconds (26.0-36.0) H 01/16/18 20:15 Sodium 134 mEq/L (136-145) L 01/16/18 20:15 Chloride 97 mEq/L (98-107) L 01/16/18 20:15 Glucose 371 mg/dL (70-105) H 01/16/18 20:15 POC Glucose 266 (58-89) H 01/18/18 05:48 Triglycerides 263 mg/dL (< 150) H 01/18/18 03:13 Cholesterol 212 mg/dL (< 200) H 01/18/18 03:13 LDL Cholesterol, Calc 114 mg/dL (0-99) H 01/18/18 03:13 VLDL Cholesterol, Calc 53 mg/dL (< 31) H 01/18/18 03:13 Consult Discharge Plan - Plan Instructions: Restrictive Cardiomyopathy (DC), Alzheimer Disease (DC), Parkinson's Disease (DC), Ischemic Stroke (DC), Transient Ischemic Attack, Day Care Home Provider (GEN) Referrals: Marla Verde, CALI [Primary Care Provider] - 01/22/18 3:00 pm <Jean-Claude Mejia - Last Filed: 01/18/18 16:06> Date of Encounter: 01/18/18 Time of Encounter: 16:04 Assessment and Plan (1) Transient cerebral ischemia Status: Acute I agree with Dr. Araujo's assessment and plan as stated above. Risk factor management and smoking cessation will be paramount. He will continue antiplatelet therapy aggressive glycemic control and hypertensive management. Continue statins. I will follow up with her in my office after discharge. Qualifiers: Transient cerebral ischemia type: unspecified Qualified Code(s): G45.9 - Transient cerebral ischemic attack, unspecified Subjective Interval history: As above. In terms of view, case was discussed with Dr. Araujo. Patient was examined independently. His exam is nonfocal at this time he has had no further neurologic events. I agree with Dr. Araujo's statement as above. Objective - Constitutional Vitals: Temp Pulse Resp BP Pulse Ox 97.9 F 101 18 112/72 95 01/18/18 10:35 01/18/18 10:35 01/18/18 10:35 01/18/18 10:35 01/18/18 10:35 Results - Laboratory Findings CBC and BMP: 01/16/18 20:15 01/16/18 20:15 Abnormal lab findings: Abnormal lab results WBC 13.1 K/mcL (4.3-11.1) H 01/16/18 20:15 Neutrophils # 9.1 K/mcL (1.6-8.9) H 01/16/18 20:15 PT 18.0 Seconds (9.4-12.1) H 01/18/18 03:13 APTT 49.5 Seconds (26.0-36.0) H 01/16/18 20:15 Sodium 134 mEq/L (136-145) L 01/16/18 20:15 Chloride 97 mEq/L (98-107) L 01/16/18 20:15 Glucose 371 mg/dL (70-105) H 01/16/18 20:15 POC Glucose 266 (58-89) H 01/18/18 05:48 Triglycerides 263 mg/dL (< 150) H 01/18/18 03:13 Cholesterol 212 mg/dL (< 200) H 01/18/18 03:13 LDL Cholesterol, Calc 114 mg/dL (0-99) H 01/18/18 03:13 VLDL Cholesterol, Calc 53 mg/dL (< 31) H 01/18/18 03:13
[2018-01-18] MEDS: Budesonide/Formoterol 160/4.5 MDI IH SCH (10:35)
[2018-01-18] MEDS: Tiotropium 18 MCG inhalation IH SCH (10:35)
[2018-01-18 10:38] VITALS: BP 112/72
--- NOTE | 2018-01-18 15:06 | Discharge Summary ---
Orders not resulted at time of discharge: Pending orders 01/17/18 04:00 Bedside Swallowing Evaluation [EVAL] Routine 01/19/18 04:00 PT/INR [Prothrombin Time INR] [COAG] AM 0400 01/20/18 04:00 PT/INR [Prothrombin Time INR] [COAG] AM 0400 Date of Encounter: 01/18/18 Time of Encounter: 15:04 - Discharge Diagnosis (1) COPD (chronic obstructive pulmonary disease) Priority: Primary Status: Chronic Comments: Not exacerbated continue home medications and inhalers Nebulizer as directed Qualifiers: COPD type: unspecified COPD Qualified Code(s): J44.9 - Chronic obstructive pulmonary disease, unspecified (2) History of pulmonary embolism Priority: Primary Status: Chronic Comments: Continue Coumadin therapy as pre-hospital (3) Leukocytosis Priority: Primary Status: Acute Comments: No signs of infection Qualifiers: Leukocytosis type: unspecified Qualified Code(s): D72.829 - Elevated white blood cell count, unspecified (4) Tobacco abuse Priority: Primary Status: Chronic Comments: Discussed tobacco cessation measures and importance (5) Transient cerebral ischemia Priority: Primary Status: Acute Comments: Mr. Lambert is a 57-year-old male with significant risk factors including uncontrolled insulin-dependent diabetes, hypertension, hyperlipidemia, significant tobacco abuse, CAD, and subcortical dementia who presented with right-sided weakness and slurred speech which resolved within 24 hours back to his baseline. - Head CT demonstrated no acute intracranial abnormalities. - Clinical examination does not correlate with any acute hemorrhagic/ischemic events - Laboratory results hyperglycemia, therapeutic INR - MRI of the brain without any acute infarct, intracranial hemorrhage or significant mass effect. Carotid Dopplers without significant stenosis bilaterally. Echocardiogram without significant findings EF of 65%. - Continue aspirin for antiplatelet therapy. - Neuro service also discussed tobacco cessation, appropriate glucose control and hypertensive management with Mr. Lambert. - He has verbalized understanding of the risks to his health of noncompliance. Qualifiers: Transient cerebral ischemia type: unspecified Qualified Code(s): G45.9 - Transient cerebral ischemic attack, unspecified Hospital course: Mr. Lambert is a 57 year old male with history of prior stroke who presnted to ER c /o right neck and head pain which began at 12:30 pm and was associated with a right sided HUFFMAN and then slurred speech. His BP was elevated at this time and he reported high blood pressure as well as right arm and neck numbness and tingling. All of his symptoms except the slurred speech had resolved. His CT- Head did not show infarct or acute pathology. Manual blood pressure cuff with blood pressure was 220/120. He denied any symptoms of chest pain, shortness of breath, fevers, chills, recent illness. 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 He does take a daily aspirin at home. Neurology saw the patient and mentions his significant risk factors for stroke including uncontrolled insulin-dependent and the diabetes, hypertension, hyperlipidemia significant tobacco abuse of over 2 packs per day, CAD and subcortical dementia. Head CT with no acute intracranial abnormalities, clinical examination did not correlate with any acute hemorrhagic or ischemic events. Laboratory results demonstrated hyperglycemia and a therapeutic INR. MRI of the brain without any acute infarct, intracranial hemorrhage or significant mass effect. Carotid Dopplers without significant stenosis bilaterally and echocardiogram without any significant findings with EF of 65%. He will continue aspirin for anti-platelet therapy. Spent quite a bit of time talking about noncompliance with his underlying health issues as well as his excessive tobacco use. is at the bedside and agreed that he needs to change some things. I am not sure if the patient is going to follow rules when he goes home or not she has a history of noncompliance. Discharge discussed with: patient, family, nurse, social work, infrastructure consultant Time spent discussing smoking cessation with patient: 3 to 10 minutes - Time Spent with Patient Total time spent providing and/or coordinating discharge services: Less than 30 minutes - Discharge Medications Home Medications: Albuterol Sulfate [Albuterol Inhaler] 2 puff IH Q4H PRN 11/06/15 [History] Alprazolam XR [Xanax Xr] 1 mg PO HS 11/06/15 [History] Alprazolam XR [Xanax Xr] 2 mg PO QAM 11/06/15 [History] Aspirin [Adult Low Dose Aspirin EC] 81 mg PO DAILY 11/06/15 [History] Budesonide/Formoterol 160/4.5 [Symbicort] 2 puff IH BIDR 11/06/15 [History] Colestipol HCl [Colestid] 1 gm PO BID 11/06/15 [History] Cyanocobalamin (Vitamin B-12) [Vitamin B12] 1,000 mcg PO DAILY 11/06/15 [History ] Donepezil [Aricept] 10 mg PO HS 11/06/15 [History] Insulin Glargine [Lantus] 95 unit SQ BID 11/06/15 [History] Insulin LISPRO [HumaLOG] 0 units SQ TIDWM 11/06/15 [History] Ipratropium/Albuterol Neb [Duoneb] 3 ml IH Q6HR PRN 11/06/15 [History] Lansoprazole [Prevacid] 30 mg PO DAILY 11/06/15 [History] Linagliptin [Tradjenta] 5 mg PO DAILY 11/06/15 [History] Lisinopril [Zestril] 5 mg PO BID 11/06/15 [History] DiphenhydraMINE [Benadryl] 25 mg PO Q8HR PRN #30 capsule 11/07/15 [Rx] Albuterol Neb [Proventil Neb] 2.5 mg IH TID 01/16/18 [History] Ammonium Lactate [Kellen-Hydrolac] 1 appl TP BID 01/16/18 [History] Calcium Polycarbophil [Fibercon] 625 mg PO QID PRN 01/16/18 [History] Carvedilol [Coreg] 6.25 mg PO BIDWM 01/16/18 [History] Dulaglutide [Trulicity] 0.75 mg SQ TU 01/16/18 [History] Fluticasone Propionate Nasal [Flonase] 50 mcg NS DAILY 01/16/18 [History] Folic Acid 1 mg PO DAILY 01/16/18 [History] Furosemide [Lasix] 120 mg PO BID 01/16/18 [History] Gabapentin [Neurontin] 300 mg PO TID 01/16/18 [History] HYDROcodone/Acet 5/325 mg [[place] 5-325 mg] 1 tab PO Q6H PRN 01/16/18 [History] Isosorbide MONOnitrate (24 HR) [Imdur] 30 mg PO DAILY 01/16/18 [History] Meloxicam [Mobic] 7.5 mg PO DAILY 01/16/18 [History] Memantine HCl 10 mg PO HS 01/16/18 [History] Metformin HCl [Glucophage] 1,000 mg PO BID 01/16/18 [History] Nitroglycerin [Nitrostat] 0.4 mg SL Q5M PRN 01/16/18 [History] OLANZapine [Zyprexa] 15 mg PO HS 01/16/18 [History] Potassium Chloride [K-Tab ER] 20 meq PO BID 01/16/18 [History] Simvastatin [Zocor] 40 mg PO HS 01/16/18 [History] Tiotropium [place] [Spiriva Respimat] 2 puff IH DAILY 01/16/18 [History] Warfarin [Coumadin] 10 mg PO 1800 01/16/18 [History] lamoTRIgine [Lamictal] 50 mg PO HS 01/16/18 [History] Allergies/Adverse Reactions: 3 Allergy/AdvReac Type Severity Reaction Status Date / Time No Known Allergies Allergy Verified 10/15/15 18:10 Date of admission: 01/17/18 00:28 Primary care physician: Marla Verde CNP Consults: 01/17/18 07:53 Consult to Neurology [CONS] Routine Consulting Provider: Neurology [facility] Reason for Consult: stroke Time Notified: 07:54 Call Completed: Yes 01/17/18 09:18 Consult to Occupational Therapy [CONS] Routine Comment: Evaluate, develop and implement POC Reason for Consult: STROKE PROTOCOL Consult to Physical Therapy [CONS] Routine Comment: Evaluate, develop and implement POC Reason for Consult: STROKE PROTOCOL Discharging clinician: Jodie Bates Anticipated date of discharge: 01/18/18 - Constitutional Vitals: Temp Pulse Resp BP Pulse Ox 97.9 F 101 18 112/72 95 01/18/18 10:35 01/18/18 10:35 01/18/18 10:35 01/18/18 10:35 01/18/18 10:35 General appearance: Present: cooperative, A&O X 3, pleasant, obese, answers questions appropriately - Head Head exam: Present: atraumatic, normocephalic - Eye Eye exam: Present: PERRL, conjuntiva pink, sclera anicteric Pupils: Present: PERRL - Neck Neck exam general surgery: Present: supple, trachea midline. Absent: lymphadenopathy - Respiratory Respiratory exam: Present: CTAB. Absent: accessory muscle use, rales, rhonchi, wheezes - Cardiovascular Cardiovascular exam: Present: RRR, +S1, +S2. Absent: diastolic murmur, gallop, rubs, systolic murmur - GI/Abdominal GI/Abdominal exam: Present: normal bowel sounds, soft, no peritoneal signs. Absent: distended, guarding, tenderness - Extremities Exam Extremities exam: Present: warm, radial pulses palpable and symmetrical. Absent : calf tenderness, cyanotic, pedal edema - Neurological Exam Neurological exam: Present: alert, CN II-XII intact, normal gait, oriented X3, no focal deficits, strengths equal and symetr throughout. Absent: pronater drift, facial droop, speech deficit - Skin Skin exam: Present: dry, intact, normal color, warm - Patient Status Disposition: Home, Self-Care Condition: Good Functional capacity at discharge: independent ambulation Overall status at discharge: patient is back to baseline - Discharge Instructions Follow Up With: Marla Verde CNP [Primary Care Provider] - 01/22/18 3:00 pm - Diet and Activity Activity: resume usual activities as tolerated Diet: diabetic diet, low fat, low cholesterol, low salt diet
[2018-01-18] MEDS ORDERED: *HR* Warfarin 10 MG TABLET PO ONE (18:00)
[2018-01-22] MEDS ORDERED: Dulaglutide [Trulicity] 0.75 MG SQ SCH (09:00)
== END 2018-01-18 15:30 | disposition home or self-care (01) ==
LOC: 3BNU 19:56 → EMEROO 19:56 → 3BNU 01-17 01:14
PROVIDERS: ADMIT Pediatrics; ATTEND Registered Nurse